=== PATIENT | female | born 1960 | race Caucasian/White ===

== ENCOUNTER 2025-02-13 05:31 | Emergency (ER) | payer OTHER, SELFPAY ==
[2025-02-13 05:38] VITALS: PULSE 67; TEMP 36.7; O2SAT 98; BMI 26.5
[2025-02-13 05:46] VITALS: BP 142/67
--- NOTE | 2025-02-13 05:54 | ED.NAVMDI1 ---
HPI - Nausea/Vomiting/Diarrhea General Chief complaint: Nausea/Vomiting/Diarrhea Stated complaint: RINGING IN EAR, DIZZINESS, NAUSEA, VOMMITTING Time Seen by Provider: 02/13/25 05:46 Source: patient Mode of arrival: walk-in History of Present Illness HPI Narrative: This 64-year-old female presents for evaluation of nausea vomiting and diarrhea that started this morning. She states she has been vomiting since around 4 AM and also having diarrhea since 4 AM. Yesterday she had cereal, toast and [employer] last night. She denies any romeo abdominal pain. She does have ringing in the right ear that also started this morning. She states she feels dizzy with any movement. She denies any chest pain or shortness of breath. She denies any headache or fever. She states she has recently had some hearing loss and is seeing Dr. Yee. Related Data Home Medications ?Medication ?Instructions ?Recorded ?Confirmed atorvastatin 20 mg tablet mg 02/13/25 buspirone 10 mg tablet mg 02/13/25 gabapentin 100 mg capsule mg 02/13/25 latanoprost 0.005 % eye drops drp ophthalmic (eye) 02/13/25 thyroid (pork) 15 mg tablet (FLAT MACHINE CUTTER mg 02/13/25 Thyroid) thyroid (pork) 30 mg tablet (FLAT MACHINE CUTTER mg 02/13/25 Thyroid) Allergies Allergy/AdvReac Type Severity Reaction Status Date / Time sea food AdvReac Mild Nausea Uncoded 02/13/25 05:44 Review of Systems ROS Status of ROS 10 or more systems reviewed and unremarkable except as noted in history and below PFSH PFSH Social History Little interest or pleasure in doing things: not at all Feeling down, depressed, or hopeless: not at all Exam Narrative Exam Narrative: Vital signs and Nursing Notes reviewed: Patient is afebrile with normal pulse, normal respiratory, blood pressure is mildly elevated 142/67, she is not hypoxic with pulse ox of 98% on room air General: Awake, alert, oriented, uncomfortable appearing female with an emesis basin in her lap, no respiratory distress HEENT: Normocephalic atraumatic, mucous membranes are moist and pink, eyes are clear, normal conjunctiva, vision is grossly intact, extraocular muscles are intact without nystagmus tympanic membranes are normal bilaterally with some degree of scar tissue in the left tympanic membrane Neck: Supple, no meningeal signs Chest: Lungs are clear to auscultation with good air entry, there is no wheezing rhonchi or rales appreciated no accessory muscle use, patient is speaking in complete sentences-no chest wall tenderness to palpation CVS: Regular rate and rhythm S1-S2, no murmurs rubs or gallops, pulses are brisk and equal bilaterally ABD: Soft, nondistended, nontender, no rebound guarding or rigidity, bowel sounds are normal, no pulsatile masses appreciated Extremities: Moving all extremities, no lower extremity tenderness or swelling noted, negative Homans' sign, pulses are brisk and equal bilaterally Skin: Normal in appearance without rash,pallor, petechiae or purpura Neuro: No focal deficits Constitutional Vital Signs, click to edit/add: Last Vital Signs Temp 98.1 F 02/13/25 05:38 Pulse 68 02/13/25 06:23 Resp 15 02/13/25 06:23 BP 140/70 02/13/25 06:23 Pulse Ox 97 02/13/25 06:23 O2 Del Method Room Air 02/13/25 06:23 Course Vital Signs Vital signs: Vital Signs Temperature 98.1 F 02/13/25 05:38 Pulse Rate 67 02/13/25 05:38 Respiratory Rate 16 02/13/25 05:38 Pulse Oximetry 98 02/13/25 05:38 Oxygen Delivery Method Room Air 02/13/25 05:38 Temperature 98.1 F 02/13/25 05:38 Pulse Rate 68 02/13/25 06:23 Respiratory Rate 15 02/13/25 06:23 Blood Pressure 140/70 02/13/25 06:23 Pulse Oximetry 97 02/13/25 06:23 Oxygen Delivery Method Room Air 02/13/25 06:23 MDM - Nausea/Vomiting/Diarrhea MDM Narrative Medical decision making narrative: This 64-year-old female presents for evaluation of nausea vomiting diarrhea that started around 4 AM. She has had several episodes of vomiting and diarrhea prior to arrival. She also complains of a ringing sensation in her right ear which is new for her. She does not appear to have any vertiginous symptoms although she does appear to be dizzy and does not want to move. She states that opening her eyes makes her dizzy and feel like she wants to vomit. She is not having any abdominal pain. She denies any chest pain or shortness of breath. She is currently being worked up for some hearing loss and seeing ENT locally. Patient's vital signs are stable. Physical exam is benign. She does have some scar tissues in the left tympanic membrane. She does not have any nystagmus. She does not have any focal neurologic deficits. An IV was placed and she was given IV fluids, Zofran, Pepcid and when she was able to tolerate meclizine was ordered. Routine labs are reviewed. She has a normal white count and hemoglobin is stable. Comprehensive metabolic profile is normal. Lipase is normal. She was reevaluated and states she is not feeling any better. She was able to tolerate the meclizine. She will be given an IM dose of Valium. Lab Data Labs: Lab Results 02/13/25 Range/Units 06:08 WBC 6.6 (4.0-11.0) 10^3/uL RBC 4.16 L (4.20-5.40) 10^6/uL Hgb 14.5 (12.0-16.0) g/dL Hct 40.6 (36.0-48.0) % MCV 97.6 (81.0-99.0) fL MCH 34.9 H (26.7-34.0) pg MCHC 35.7 H (29.9-35.2) g/dL RDW 11.5 (11.0-15.0) % Plt Count 203 (150-450) 10^3/uL MPV 10.9 (9.5-13.5) fL Neut % (Auto) 57.2 (43.0-75.0) % Lymph % (Auto) 33.3 (20.5-60.0) % [place] % (Auto) 7.4 (1.7-12.0) % Eos % (Auto) 1.5 (0.9-7.0) % Baso % (Auto) 0.3 (0.2-2.0) % Neut # (Auto) 3.8 (1.4-6.5) 10^3/uL Lymph # (Auto) 2.2 (1.2-3.8) 10^3/uL [place] # (Auto) 0.5 (0.3-0.8) 10^3/uL Eos # (Auto) 0.1 (0.0-0.7) 10^3/uL Baso # (Auto) 0.0 (0.0-0.1) 10^3/uL Abs Immat Gran (auto) 0.02 (0.00-0.03) 10^3/uL Imm/Tot Granulo (auto) 0.3 (0.0-0.5) % Sodium 144 (136-145) mmol/L Potassium 3.8 (3.5-5.1) mmol/L Chloride 106 (98-107) mmol/L Carbon Dioxide 28.4 (21.0-32.0) mmol/L Anion Gap 13.4 BUN 17.0 (7.0-18.0) mg/dL Creatinine 0.80 (0.55-1.02) mg/dL Est GFR ( Amer) >60 (>=60 mL/min/1.73m^2) Est GFR (Non-Af Amer) >60 (>=60 mL/min/1.73m^2) BUN/Creatinine Ratio 21.2 Glucose 160 H (74-106) mg/dL Calcium 9.1 (8.5-10.1) mg/dL Total Bilirubin 0.7 (0.2-1.0) mg/dL AST 21 (15-37) U/L ALT 30 (14-59) U/L Alkaline Phosphatase 95 (46-116) U/L Total Protein 6.8 (6.4-8.2) g/dL Albumin 3.7 (3.4-5.0) g/dL Globulin 3.1 g/dL Albumin/Globulin Ratio 1.2 Lipase 58.0 (16.0-77.0) U/L Discharge Plan Discharge Patient Disposition: Still a Patient
[2025-02-13 06:16] LABS: Basophils Percent Auto 0.3 % (0.2-2.0); Eosinophils Absolute Auto 0.1 10^3/uL (0.0-0.7); Eosinophils Percent Auto 1.5 % (0.9-7.0); Hematocrit 40.6 % (36.0-48.0); Hemoglobin 14.5 g/dL (12.0-16.0); Immature Granulocytes Abs Auto 0.02 10^3/uL (0.00-0.03); Immature Granulocytes Pct Auto 0.3 % (0.0-0.5); Lymphocytes Absolute Auto 2.2 10^3/uL (1.2-3.8); Lymphocytes Percent Auto 33.3 % (20.5-60.0); Mean Corpuscular HGB Conc 35.7 g/dL (29.9-35.2); Mean Corpuscular Hemoglobin 34.9 pg (26.7-34.0); Mean Corpuscular Volume 97.6 fL (81.0-99.0); Mean Platelet Volume 10.9 fL (9.5-13.5); Monocytes Absolute Auto 0.5 10^3/uL (0.3-0.8); Monocytes Percent Auto 7.4 % (1.7-12.0); Neutrophils Absolute Auto 3.8 10^3/uL (1.4-6.5); Neutrophils Percent Auto 57.2 % (43.0-75.0); Platelet Count 203 10^3/uL (150-450); Red Blood Count 4.16 10^6/uL (4.20-5.40); Red Cell Distribution Width 11.5 % (11.0-15.0); White Blood Count 6.6 10^3/uL (4.0-11.0)
[2025-02-13] MEDS: ONDANSETRON PF 4 MG/2 ML VIAL IV (06:16)
[2025-02-13] MEDS: FAMOTIDINE/PF 20 MG/2 ML VIAL IV (06:16)
[2025-02-13] MEDS: MECLIZINE HCL 12.5 MG TABLET 25 MG PO (06:16)
[2025-02-13] MEDS: 0.9 % SODIUM CHLORIDE 1,000 ML 1000 ML IV (06:17)
[2025-02-13 06:23] VITALS: BP 140/70; PULSE 68; O2SAT 97
[2025-02-13 06:32] LABS: Alanine Aminotransferase 30 U/L (14-59); Albumin Globulin Ratio 1.2; Albumin Level 3.7 g/dL (3.4-5.0); Alkaline Phosphatase 95 U/L (46-116); Anion Gap 13.4; Aspartate Amino Transferase 21 U/L (15-37); BUN Creatinine Ratio 21.2; Bilirubin Total 0.7 mg/dL (0.2-1.0); Calcium 9.1 mg/dL (8.5-10.1); Carbon Dioxide 28.4 mmol/L (21.0-32.0); Chloride 106 mmol/L (98-107); Estimated GFR (African America >60 (>=60 mL/min/1.73m^2); Estimated GFR (Non-African Ame >60 (>=60 mL/min/1.73m^2); Globulin 3.1 g/dL; Glucose 160 mg/dL (74-106); Potassium 3.8 mmol/L (3.5-5.1); Sodium 144 mmol/L (136-145); Total Protein 6.8 g/dL (6.4-8.2)
[2025-02-13] MEDS: DIAZEPAM 10 MG/2 ML SYRINGE 5 MG IM (06:51)
--- NOTE | 2025-02-13 07:25 | ED.GENADUL1 ---
HPI HPI - General Adult General Chief complaint: Nausea/Vomiting/Diarrhea Stated complaint: RINGING IN EAR, DIZZINESS, NAUSEA, VOMMITTING Time Seen by Provider: 02/13/25 05:46 Source: patient Mode of arrival: walk-in History of Present Illness HPI narrative: 64-year-old female seen initially by Dr. Toure and signed out to me at change of shift. Please see her full history and physical exam Related Data Home Medications ?Medication ?Instructions ?Recorded ?Confirmed atorvastatin 20 mg tablet mg 02/13/25 buspirone 10 mg tablet mg 02/13/25 gabapentin 100 mg capsule mg 02/13/25 latanoprost 0.005 % eye drops drp ophthalmic (eye) 02/13/25 thyroid (pork) 15 mg tablet (INSTRUCTOR ADJUNCT SURGICAL TECHNICIAN mg 02/13/25 Thyroid) thyroid (pork) 30 mg tablet (INSTRUCTOR ADJUNCT SURGICAL TECHNICIAN mg 02/13/25 Thyroid) Previous Rx's ?Medication ?Instructions ?Recorded ondansetron 4 mg disintegrating 4 mg PO Q6H PRN nausea and 02/13/25 tablet vomiting #20 tabs Allergies Allergy/AdvReac Type Severity Reaction Status Date / Time sea food AdvReac Mild Nausea Uncoded 02/13/25 05:44 PFSH PFSH Social History Little interest or pleasure in doing things: not at all Feeling down, depressed, or hopeless: not at all Exam Constitutional Vital Signs, click to edit/add: Last Vital Signs Temp 98.1 F 02/13/25 05:38 Pulse 68 02/13/25 06:23 Resp 15 02/13/25 06:23 BP 140/70 02/13/25 06:23 Pulse Ox 97 02/13/25 06:23 O2 Del Method Room Air 02/13/25 06:23 Course Vital Signs Vital signs: Vital Signs Temperature 98.1 F 02/13/25 05:38 Pulse Rate 67 02/13/25 05:38 Respiratory Rate 16 02/13/25 05:38 Pulse Oximetry 98 02/13/25 05:38 Oxygen Delivery Method Room Air 02/13/25 05:38 Temperature 98.1 F 02/13/25 05:38 Pulse Rate 68 02/13/25 06:23 Respiratory Rate 15 02/13/25 06:23 Blood Pressure 140/70 02/13/25 06:23 Pulse Oximetry 97 02/13/25 06:23 Oxygen Delivery Method Room Air 02/13/25 06:23 Medical Decision Making MDM Narrative Medical decision making narrative: Laboratory analysis is negative. She is feeling improved and is able to be discharged home with a prescription for Zofran. She will be following up with Dr. Justin about her ear issues. Treatment diagnosis and follow-up were discussed with the patient. Differential Diagnosis Differential Diagnosis: Gastroenteritis, dehydration Lab Data Lab results reviewed: Yes I reviewed the patient's lab results Labs: Lab Results 02/13/25 Range/Units 06:08 WBC 6.6 (4.0-11.0) 10^3/uL RBC 4.16 L (4.20-5.40) 10^6/uL Hgb 14.5 (12.0-16.0) g/dL Hct 40.6 (36.0-48.0) % MCV 97.6 (81.0-99.0) fL MCH 34.9 H (26.7-34.0) pg MCHC 35.7 H (29.9-35.2) g/dL RDW 11.5 (11.0-15.0) % Plt Count 203 (150-450) 10^3/uL MPV 10.9 (9.5-13.5) fL Neut % (Auto) 57.2 (43.0-75.0) % Lymph % (Auto) 33.3 (20.5-60.0) % [place] % (Auto) 7.4 (1.7-12.0) % Eos % (Auto) 1.5 (0.9-7.0) % Baso % (Auto) 0.3 (0.2-2.0) % Neut # (Auto) 3.8 (1.4-6.5) 10^3/uL Lymph # (Auto) 2.2 (1.2-3.8) 10^3/uL [place] # (Auto) 0.5 (0.3-0.8) 10^3/uL Eos # (Auto) 0.1 (0.0-0.7) 10^3/uL Baso # (Auto) 0.0 (0.0-0.1) 10^3/uL Abs Immat Gran (auto) 0.02 (0.00-0.03) 10^3/uL Imm/Tot Granulo (auto) 0.3 (0.0-0.5) % Sodium 144 (136-145) mmol/L Potassium 3.8 (3.5-5.1) mmol/L Chloride 106 (98-107) mmol/L Carbon Dioxide 28.4 (21.0-32.0) mmol/L Anion Gap 13.4 BUN 17.0 (7.0-18.0) mg/dL Creatinine 0.80 (0.55-1.02) mg/dL Est GFR ( Amer) >60 (>=60 mL/min/1.73m^2) Est GFR (Non-Af Amer) >60 (>=60 mL/min/1.73m^2) BUN/Creatinine Ratio 21.2 Glucose 160 H (74-106) mg/dL Calcium 9.1 (8.5-10.1) mg/dL Total Bilirubin 0.7 (0.2-1.0) mg/dL AST 21 (15-37) U/L ALT 30 (14-59) U/L Alkaline Phosphatase 95 (46-116) U/L Total Protein 6.8 (6.4-8.2) g/dL Albumin 3.7 (3.4-5.0) g/dL Globulin 3.1 g/dL Albumin/Globulin Ratio 1.2 Lipase 58.0 (16.0-77.0) U/L Discharge Plan Discharge Chief Complaint: Nausea/Vomiting/Diarrhea Clinical Impression: Nausea, vomiting and diarrhea, Right-sided tinnitus Patient Disposition: Home, Self-Care Time of Disposition Decision: 07:24 Condition: Good Mode of Transportation: Private Vehicle Prescriptions / Home Meds: New ondansetron 4 mg tablet,disintegrating 4 mg PO Q6H PRN (Reason: nausea and vomiting) Qty: 20 0RF No Action latanoprost 0.005 % drops OPHTHALMIC (EYE) atorvastatin 20 mg tablet buspirone 10 mg tablet gabapentin 100 mg capsule thyroid (pork) [INSTRUCTOR ADJUNCT SURGICAL TECHNICIAN Thyroid] 15 mg tablet thyroid (pork) [INSTRUCTOR ADJUNCT SURGICAL TECHNICIAN Thyroid] 30 mg tablet Print Language: Welsh Instructions: Acute Nausea and Vomiting (ED), Acute Diarrhea (ED) Referrals: KETAN MCFARLAND [Primary Care Provider, Family Practice] - 1 week
== END 2025-02-13 07:48 | disposition home or self-care (01) ==
PROVIDERS: Emergency Medicine; Emergency Provider Emergency Medicine; Family Provider Family Medicine; PCP Family Medicine
DX: R11.2 Nausea with vomiting, unspecified (principal); R19.7 Diarrhea, unspecified; H93.11 Tinnitus, right ear
CPT/HCPCS: 36415; 80053; 83690; 85025; 96361; 96372; 96374; 96375; 99284; J2405; J3360; J3490